=== PATIENT | male | born 2000 | race Caucasian/White ===

== ENCOUNTER 2019-03-25 09:31 | Day surgery (SDC) | payer OTHER ==
[~2019-03-25 09:31] MED LIST: Lactated Ringers 1,000 ML IV SCH; Lidocaine 1%/Sod Bicarbonate in NS 8.4% 1 ML Syringe IDERM PRN; Sodium Chloride 0.9% 10 ML Syringe FLUSH PRN
--- NOTE | 2019-03-25 10:37 | PCM.PREANE ---
Preanesthetic Assessment - Anesthesia/Transfusion/Family Hx Anesthesia History: Prior Anesthesia Without Reaction Family History of Anesthesia Reaction: No Transfusion History: No Prior Transfusion(s) - Review of Systems General: No Symptoms Pulmonary: No Symptoms Cardiovascular: No Symptoms Gastrointestinal: No Symptoms Neurological: No Symptoms Other: Reports: None - Physical Assessment NPO Status Date: 03/24/19 NPO Status Time: 23:45 Vital Signs: Last Vital Signs Temp 36.6 C 03/25/19 09:45 Pulse 90 03/25/19 09:45 Resp 16 03/25/19 09:45 BP 120/83 03/25/19 09:45 Pulse Ox 100 03/25/19 09:45 Height: 1.83 m Weight: 73.936 kg ASA Class: 1 Mental Status: Alert & Oriented x3 Airway Class: Mallampati = 1 Dentition: Reports: Normal Dentition Thyro-Mental Finger Breadths: 3 Mouth Opening Finger Breadths: 3 ROM/Head Extension: Full Lungs: Clear to Auscultation, Normal Respiratory Effort Cardiovascular: Regular Rate, Regular Rhythm - Lab Values: Laboratory Last Values WBC 4.44 K/mm3 (4.23-9.07) 03/24/19 12:18 RBC 5.07 M/mm3 (4.63-6.08) 03/24/19 12:18 Hgb 15.6 gm/L (13.7-17.5) 03/24/19 12:18 Hct 44.7 % (40.1-51.0) 03/24/19 12:18 MCV 88.2 fl (79.0-92.2) 03/24/19 12:18 MCH 30.8 pg (25.7-32.2) 03/24/19 12:18 MCHC 34.9 g/dl (32.2-35.5) 03/24/19 12:18 RDW Std Deviation 38.6 fL (35.1-43.9) 03/24/19 12:18 Plt Count 246 K/mm3 (163-337) 03/24/19 12:18 MPV 9.9 fl (9.4-12.3) 03/24/19 12:18 Neut % (Auto) 61.3 % (34.0-67.9) 03/24/19 12:18 Lymph % (Auto) 26.1 % (21.8-53.1) 03/24/19 12:18 Placer % (Auto) 11.0 % (5.3-12.2) 03/24/19 12:18 Eos % (Auto) 1.1 (0.8-7.0) 03/24/19 12:18 Baso % (Auto) 0.5 % (0.1-1.2) 03/24/19 12:18 Neut # (Auto) 2.72 K/mm3 (1.78-5.38) 03/24/19 12:18 Lymph # (Auto) 1.16 K/mm3 (1.32-3.57) L 03/24/19 12:18 Placer # (Auto) 0.49 K/mm3 (0.30-0.82) 03/24/19 12:18 Eos # (Auto) 0.05 K/mm3 (0.04-0.54) 03/24/19 12:18 Baso # (Auto) 0.02 K/mm3 (0.01-0.08) 03/24/19 12:18 Sodium 141 mEq/L (136-145) 03/24/19 12:18 Potassium 4.9 mEq/L (3.5-5.1) 03/24/19 12:18 Chloride 104 mEq/L (98-107) 03/24/19 12:18 Carbon Dioxide 31 mEq/L (21-32) 03/24/19 12:18 Anion Gap 10.9 (5-15) 03/24/19 12:18 BUN 16 mg/dL (7-18) 03/24/19 12:18 Creatinine 1.1 mg/dL (0.7-1.3) 03/24/19 12:18 Est Cr Clr Drug Dosing TNP 03/24/19 12:18 Estimated GFR (MDRD) > 60 mL/min (>60) 03/24/19 12:18 BUN/Creatinine Ratio 14.5 (14-18) 03/24/19 12:18 Glucose 100 mg/dL (74-106) 03/24/19 12:18 Calcium 9.7 mg/dL (8.5-10.1) 03/24/19 12:18 MRSA (PCR) Negative 03/24/19 12:18 - Allergies Allergies/Adverse Reactions: Allergies Allergy/AdvReac Type Severity Reaction Status Date / Time No Known Allergies Allergy Verified 03/24/19 13:35 - Blood Blood Available: No Product(s) Available: None - Anesthesia Plan Pre-Op Medication Ordered: None - Acknowledgements Anesthesia Type Planned: General Anesthesia Pt an Appropriate Candidate for the Planned Anesthesia: Yes Alternatives and Risks of Anesthesia Discussed w Pt/Guardian: Yes Pt/Guardian Understands and Agrees with Anesthesia Plan: Yes PreAnesthesia Questionnaire Cardiovascular History: Reports: None Respiratory History: Reports: None Gastrointestinal History: Reports: None Genitourinary History: Reports: None IMMUNOPATHOLOGIST History: Reports: None Musculoskeletal History: Reports: None Neurological History: Reports: None Psychiatric History: Reports: None Endocrine/Metabolic History: Reports: None Hematologic History: Reports: None Immunologic History: Reports: None Oncologic (Cancer) History: Reports: None Dermatologic History: Reports: None - Past Surgical History Head Surgeries/Procedures: Reports: None HEENT Surgical History: Reports: Oral Surgery, Tonsillectomy Cardiovascular Surgical History: Reports: None Respiratory Surgical History: Reports: None GI Surgical History: Reports: None Female Surgical History: Reports: None Male Surgical History: Reports: None Endocrine Surgical History: Reports: None Neurological Surgical History: Reports: None Musculoskeletal Surgical History: Reports: None Oncologic Surgical History: Reports: None Dermatological Surgical History: Reports: None - SUBSTANCE USE Smoking Status *Q: Never Smoker Tobacco Use Within Last Twelve Months: No Second Hand Smoke Exposure: No Days Per Week of Alcohol Use: 1 Number of Drinks Per Day: 0 Total Drinks Per Week: 0 Recreational Drug Use History: No - HOME MEDS Home Medications: Home Meds Acetaminophen/HYDROcodone [[place] 325-5 MG] 1 - 2 tab PO Q6H PRN #20 tablet 03/25 [Rx] - CURRENT (IN HOUSE) MEDS Current Meds: Current Medications Lactated Ringer's (Ringers, Lactated) 1,000 mls @ 125 mls/hr IV ASDIRECTED NICK Stop: 03/25/19 23:00 Last Admin: 03/25/19 10:15 Dose: 125 mls/hr Lidocaine/Sodium Bicarbonate (Buffered Lidocaine 1% In Ns 8.4%) 0.25 ml IDERM ONETIME PRN PRN Reason: Prior to IV Start Stop: 03/25/19 18:00 Last Admin: 09/05/19 10:15 Dose: 0.25 ml Sodium Chloride (Saline Flush) 10 ml FLUSH ASDIRECTED PRN PRN Reason: Keep Vein Open Stop: 03/25/19 18:00
[2019-03-25] MEDS ORDERED: fentaNYL 250 MCG/5 ML SDV ONE (12:37)
[2019-03-25] MEDS ORDERED: Midazolam 1 MG/ML 2 ML SDV ONE (12:37)
[2019-03-25] MEDS ORDERED: Propofol 200 MG/20 ML SDV ONE (12:37)
[2019-03-25] MEDS ORDERED: Ondansetron 4 MG/2 ML SDV ONE (12:37)
[2019-03-25] MEDS ORDERED: Lidocaine 1% 4 ML ONE (12:38)
[2019-03-25] MEDS ORDERED: Lactated Ringers 1,000 ML ONE (12:53)
[2019-03-25] MEDS ORDERED: HYDROmorphone 0.5 MG/0.5 ML Syringe ONE (13:07)
[2019-03-25] MEDS ORDERED: ceFAZolin 1 GM Vial ONE (13:09)
[2019-03-25] MEDS ORDERED: Bupivacaine 0.25% 10 ML SDV ONE (13:10)
[2019-03-25] MEDS ORDERED: Ketorolac 30 MG/ML SDV IVPUSH PRN (13:48)
[2019-03-25] MEDS ORDERED: fentaNYL 100 MCG/2 ML SDV IVPUSH PRN (13:48)
--- NOTE | 2019-03-25 13:50 | PCM.POSTAN ---
POST ANESTHESIA ASSESSMENT - MENTAL STATUS Mental Status: Alert, Oriented - VITAL SIGNS Vital Signs: Last Vital Signs Temp 36.6 C 03/25/19 09:45 Pulse 90 03/25/19 09:45 Resp 16 03/25/19 09:45 BP 120/83 03/25/19 09:45 Pulse Ox 100 03/25/19 09:45 - RESPIRATORY Respiratory Status: Respiratory Rate WNL, Airway Patent, O2 Saturation Stable, Supplemental Oxygen - CARDIOVASCULAR CV Status: Pulse Rate WNL, Blood Pressure Stable - GASTROINTESTINAL GI Status: No Symptoms - PAIN Pain Score: 0 - POST OP HYDRATION Hydration Status: Adequate & Stable - OBSERVATIONS Free Text/Narrative:: no anesthesia complications noted
[2019-03-25] MEDS ORDERED: Acetaminophen/HYDROcodone 325-5 MG Tab PO PRN (14:05)
--- NOTE | 2019-03-25 14:50 | CR ---
Right fourth finger: Eight fluoroscopic spot views were obtained utilizing C-arm device centered to the right fourth metacarpal. Fracture is seen within the mid shaft of the fourth metacarpal. Final film shows 2 pins crossing the fracture line. Fluoroscopy time is given as 30.9 seconds. Impression: 1. Procedural exam as noted above. Diagnostic code #2
[2019-03-25 15:12] VITALS: BP 116/78
--- NOTE | 2019-03-25 15:19 | PCM48HPAN ---
Post Anesthesia Note - EVALUATION WITHIN 48HRS OF ANESTHETIC Vital Signs in Normal Range: Yes Patient Participated in Evaluation: Yes Respiratory Function Stable: Yes Airway Patent: Yes Cardiovascular Function Stable: Yes Hydration Status Stable: Yes Pain Control Satisfactory: Yes Nausea and Vomiting Control Satisfactory: Yes Mental Status Recovered: Yes (states pain is under control) Vital Signs: Last Vital Signs Temp 97.5 F 03/25/19 15:00 Pulse 54 L 03/25/19 15:00 Resp 16 03/25/19 15:00 BP 116/78 03/25/19 15:00 Pulse Ox 98 03/25/19 15:00
--- NOTE | 2019-03-27 09:03 | PCM.OPNOTE ---
- General Post-Op/Procedure Note Date of Surgery/Procedure: 03/25/19 Operative Procedure(s): closed reduction with percutaneous pinning of right fourth metacarpal shaft fracture Pre Op Diagnosis: displaced right fourth metacarpal shaft fracture Post-Op Diagnosis: Same Anesthesia Technique: General LMA, Local Primary Surgeon: Sacha Kidd Anesthesia Provider: Jarod Silva Molecular Pathologist: Susy Mohamud EBL in mLs: 5 Complications: None Condition: Good
--- NOTE | 2019-03-27 09:29 | OR ---
DATE OF OPERATION: 03/25/2019 SURGEON: Sacha Kidd MD OPERATION PERFORMED: Closed reduction with percutaneous pinning of right fourth metacarpal shaft fracture. PREOPERATIVE DIAGNOSIS: Displaced right fourth metacarpal shaft fracture. POSTOPERATIVE DIAGNOSIS: Displaced right fourth metacarpal shaft fracture. ANESTHESIA: General LMA with local. ANESTHESIA PROVIDER: Devaughn Hager. SERVICE CLERK: Susy Mohamud PA-C ESTIMATED BLOOD LOSS: Less than 5 mL. COMPLICATIONS: None. CONDITION: Stable. DESCRIPTION OF PROCEDURE: The patient was identified in the preop holding area. Proper site was marked and identified by the surgeon. The patient was taken back to the operating theater where after adequate anesthesia, the patient's right upper extremity was sterilely prepped and draped in the usual sterile fashion. OR time-out was performed. The patient received 2 g of IV Ancef. At this time, C-arm fluoroscopy showed a completely displaced right midshaft fourth metacarpal shaft fracture. At this time, a closed reduction maneuver had anatomic reduction, and two 0.042 K-wires were then placed in a retrograde fashion through the right fourth metacarpal fracture. It had anatomic reduction on both AP, oblique, and lateral views. At this time, the pins were then bent and cut. The patient was placed in a sterile soft dressing as well as an ulnar gutter splint. He tolerated the procedure well and was sent to PACU in stable condition. MMODAL /[id number]
== END 2019-03-25 15:30 | disposition home or self-care (01) ==
LOC: JD.SDS 09:31
PROVIDERS: ATTEND Orthopaedic Surgery
DX: S62.324A Displaced fracture of shaft of fourth metacarpal bone, right hand, initial encounter for closed fracture (principal)
CPT/HCPCS: 36415; 76000; 76000-26; 80048; 85025; 87641; C1713; J0690; J1170; J2001; J2250; J2405; J2704; J3010; J3490; J7120

== ENCOUNTER 2019-08-16 16:46 | Emergency (ER) | payer OTHER ==
[2019-08-16 16:57] VITALS: BP 135/119; PULSE 87
--- NOTE | 2019-08-16 18:07 | EDM.PDOC ---
ED HPI GENERAL MEDICAL PROBLEM - General Chief Complaint: Chest Pain Stated Complaint: CHEST PAIN SENT BY [facility]ILLER Time Seen by Provider: 08/16/19 17:55 - History of Present Illness INITIAL COMMENTS - FREE TEXT/NARRATIVE: 19-year-old male presents the emergency room with chest pain. This has been going on for last several days progressively getting worse. The patient has had 4 to 5-day history of a runny nose and nasal congestion. He has not had any fevers or chills he coughs up minimal sputum mostly clear. He is not had any other symptoms no nausea vomiting. With his runny nose he is not having sinus type pressure or congestion. - Related Data Allergies Allergy/AdvReac Type Severity Reaction Status Date / Time No Known Allergies Allergy Verified 08/16/19 16:57 Home Meds: Home Meds Naproxen 500 mg PO Q12H #20 tablet. 08/16/19 [Rx] Past Medical History Cardiovascular History: Reports: None Respiratory History: Reports: None Gastrointestinal History: Reports: None Genitourinary History: Reports: None MEDICAL DRIVER History: Reports: None Musculoskeletal History: Reports: None Neurological History: Reports: None Psychiatric History: Reports: None Endocrine/Metabolic History: Reports: None Hematologic History: Reports: None Immunologic History: Reports: None Oncologic (Cancer) History: Reports: None Dermatologic History: Reports: None - Past Surgical History Head Surgeries/Procedures: Reports: None HEENT Surgical History: Reports: Oral Surgery, Tonsillectomy Cardiovascular Surgical History: Reports: None Respiratory Surgical History: Reports: None GI Surgical History: Reports: None Male Surgical History: Reports: None Endocrine Surgical History: Reports: None Neurological Surgical History: Reports: None Musculoskeletal Surgical History: Reports: None Oncologic Surgical History: Reports: None Dermatological Surgical History: Reports: None Social & Family History - Tobacco Use Smoking Status *Q: Never Smoker Second Hand Smoke Exposure: No - Caffeine Use Caffeine Use: Reports: None - Recreational Drug Use Recreational Drug Use: Yes Drug Use in Last 12 Months: Yes Recreational Drug Type: Reports: Marijuana/Hashish ED ROS GENERAL - Review of Systems Review Of Systems: See Below Constitutional: Denies: Fever, Chills HEENT: Reports: Rhinitis. Denies: Ear Pain, Eye Pain, Sinus Problem, Throat Pain Respiratory: Reports: Pleuritic Chest Pain, Cough. Denies: Shortness of Breath , Wheezing, Hemoptysis Cardiovascular: Reports: No Symptoms Endocrine: Reports: No Symptoms GI/Abdominal: Reports: No Symptoms Musculoskeletal: Reports: No Symptoms Skin: Reports: No Symptoms ED EXAM, GENERAL - Physical Exam Exam: See Below Exam Limited By: No Limitations General Appearance: Alert, No Apparent Distress Eye Exam: Bilateral Eye: Normal Inspection Ears: Normal External Exam, Normal Canal, Hearing Grossly Normal, Normal TMs Nose: Normal Inspection, Normal Mucosa, No Blood Throat/Mouth: Normal Inspection, Normal Lips, Normal Teeth, Normal Gums, Normal Oropharynx, Normal Voice, No Airway Compromise Head: Atraumatic, Normocephalic Neck: Normal Inspection, Supple, Non-Tender, Full Range of Motion. No: Lymphadenopathy (L), Lymphadenopathy (R) Respiratory/Chest: No Respiratory Distress, Lungs Clear, Normal Breath Sounds, No Accessory Muscle Use, Chest Non-Tender Cardiovascular: Normal Peripheral Pulses, Regular Rate, Rhythm, No Edema GI/Abdominal: Normal Bowel Sounds, Soft, Non-Tender Back Exam: Normal Inspection. No: CVA Tenderness (L), CVA Tenderness (R) Extremities: No Pedal Edema EKG INTERPRETATION Rhythm: NSR (Mild sinus irregularity normal for age) [place]: Normal P-Wave: Present QRS: Normal ST-T: Other (Inferior early repolarization) QT: Normal Comparison: NA - No Prior EKG EKG Interpretation Comments: Normal for age EKG some baseline wander Course - Vital Signs Last Recorded V/S: Last Vital Signs Temp 37.0 C 08/16/19 16:55 Pulse 87 08/16/19 16:55 Resp 16 08/16/19 16:55 BP 135/119 H 08/16/19 16:55 Pulse Ox 99 08/16/19 16:55 - Orders/Labs/Meds Orders: Active Orders 24 hr Category Date Time Status EKG Documentation Completion [RC] STAT Care 08/16/19 18:10 Active Chest 2V [CR] Stat Exams 08/16/19 18:09 Taken - Re-Assessments/Exams Free Text/Narrative Re-Assessment/Exam: 08/16/19 18:55 Chest x-ray is unremarkable patient will be discharged home start on nonsteroidals Departure - Departure Time of Disposition: 18:57 Disposition: Home, Self-Care 01 Clinical Impression: Chest pain, pleuritic, URI (upper respiratory infection) Prescriptions: Naproxen 500 mg PO Q12H #20 tablet. Referrals: PCP,None [Primary Care Provider] - Forms: ED Department Discharge Additional Instructions: Return to the emergency room with any questions problems or worsening symptoms. Take the Naprosyn twice daily with meals. Follow-up in the hospital clinic next week if needed [phone] Sepsis Event Note - Evaluation Sepsis Screening Result: No Definite Risk - Focused Exam Vital Signs: Vital Signs Temp Pulse Resp BP Pulse Ox 08/16/19 16:55 37.0 C 87 16 135/119 H 99 Date Exam was Performed: 08/16/19 Time Exam was Performed: 19:01 - My Orders Last 24 Hours: My Active Orders 08/16/19 18:09 Chest 2V [CR] Stat 08/16/19 18:10 EKG Documentation Completion [RC] STAT - Assessment/Plan Last 24 Hours: My Active Orders 08/16/19 18:09 Chest 2V [CR] Stat 08/16/19 18:10 EKG Documentation Completion [RC] STAT
--- NOTE | 2019-08-16 19:21 | CR ---
Chest: 2 views of the chest were obtained. Comparison: No previous chest x-ray. Heart size and mediastinum are normal. Lungs are clear. Bony structures are unremarkable. Impression: 1. Nothing acute is seen on 2 view chest x-ray. Diagnostic code #1 Study was dictated in [place] Standard Time
== END 2019-08-16 19:22 | disposition home or self-care (01) ==
LOC: JD.ED 16:46
DX: R07.81 Pleurodynia (principal); J06.9 Acute upper respiratory infection, unspecified
CPT/HCPCS: 71046; 71046-26; 93005; 93010; 99283; 99285-25